=== PATIENT | female | born 1975 | race Caucasian/White ===

== ENCOUNTER 2021-09-21 10:24 | Emergency (ER) | payer OTHER, SELFPAY ==
[~2021-09-21] VITALS: Ht 160 cm; Wt 60.3 kg
[2021-09-21 10:43] VITALS: BP_SYST 125
[2021-09-21] MEDS ORDERED: NACL 0.9% 1,000 ML IV ONE ×3 (11:15→16:15)
[2021-09-21 11:36] LABS: BASOPHILS % (AUTO) 0.4 % (0.0-2.0); HEMOGLOBIN 14.7 g/dL (12.0-16.0); LYMPHOCYTES # (AUTO) 0.9 K/uL (1.0-5.5); LYMPHOCYTES % (AUTO) 7.8 % (20.5-51.5); MEAN CORPUSCULAR HEMOGLOBIN 28 pg (27-31); MEAN CORPUSCULAR HGB CONC 33 % (32-36); MEAN CORPUSCULAR VOLUME 83 fL (79.0-98.0); MONOCYTES # (AUTO) 0.2 K/uL (0.0-1.0); NEUTROPHILS # (AUTO) 10.5 K/uL (1.8-7.7); NEUTROPHILS % (AUTO) 89.8 % (40.0-70.0); PLATELET COUNT (AUTO) 274 K/uL (130-430); RED BLOOD CELL COUNT(AUTO) 5.29 MIL/uL (4.2-6.2); WHITE BLOOD COUNT (AUTO) 11.7 K/uL (4.8-10.8)
[2021-09-21 11:56] LABS: CALCIUM 9.1 mg/dL (8.4-11.0); CREATININE 0.74 mg/dL (0.55-1.30); POTASSIUM 4.3 mmol/L (3.5-5.1)
[2021-09-21 12:04] LABS: ALBUMIN 4.5 g/dL (3.4-4.8); TOTAL BILIRUBIN 0.3 mg/dL (0.0-1.0)
[2021-09-21 14:50] LABS: THYROID STIMULATING HORMONE 1.56 uIu/mL (0.36-3.74)
[2021-09-21 17:13] VITALS: BP_SYST 125
== END 2021-09-21 17:13 | disposition home or self-care (01) ==
LOC: SED 10:24
DX: R07.89 Other chest pain (principal); R00.2 Palpitations; Z86.16 Personal history of COVID-19
CPT/HCPCS: 36415; 71045; 80053; 84443; 84484; 85025; 85379; 93005; 96360; 96361; 99285; J7030